=== PATIENT | female | born 1960 | race Two or more races ===

== ENCOUNTER 2024-08-10 13:56 | Inpatient (IN) | payer OTHER ==
[2024-08-10 14:51] VITALS: BMI 34.7
[2024-08-10] MEDS ORDERED: IBUPROFEN 400 MG TABLET (FP) PO PRN (15:37)
[2024-08-10] MEDS ORDERED: guaiFENesin 600 MG TABLET.ER (FP) PO PRN (15:37)
[2024-08-10] MEDS ORDERED: NALOXONE (NARCAN) HCL 4 MG/0.1 ML SPRAY NS PRN (15:37)
[2024-08-10] MEDS ORDERED: MAGNESIUM HYDROX 2400MG/30ML ORAL SUSPENSION 30 ML CUP PO PRN (15:37)
[2024-08-10] MEDS ORDERED: BENZONATATE 200 MG CAPSULE PO PRN (15:37)
[2024-08-10] MEDS ORDERED: LOPERAMIDE HCL 2 MG CAPSULE PO PRN (15:37)
[2024-08-10] MEDS: TUBERCULIN PPD 5 TU/0.1ML SYRINGE (IN PATIENT USE ONLY) ID ONE (19:59)
[2024-08-10] MEDS: THIAMINE 100 MG TABLET PO SCH (21:16)
[2024-08-10] MEDS: MELATONIN 5 MG TABLETS PO SCH (21:16)
[2024-08-11] MEDS ORDERED: methaDONE HCL 10 MG TABLET PO SCH (08:30)
[2024-08-11] MEDS: PRENATAL VITAMINS W/ FOLIC ACID TABLET (FP) PO SCH (10:02)
[2024-08-11] MEDS: LORATADINE 10 MG TABLET PO SCH (10:02)
[2024-08-11] MEDS: MONTELUKAST NA 10 MG TABLET PO SCH (10:02)
[2024-08-11] MEDS: BICTEGRAV/EMTRICIT/TENOFOV (BIKTARVY) 50-200-25 MG TABLET PO SCH (10:04)
[2024-08-11 14:31] LABS: CHLORIDE 110 mmol/L (98-107); SODIUM 142 mmol/L (136-145)
[2024-08-11 14:33] LABS: ALBUMIN 3.2 g/dl (3.4-5.0); ANION GAP 5 mmol/L (4-13); BLOOD UREA NITROGEN 12.6 mg/dL (7-18); CALCIUM 8.8 mg/dL (8.5-10.1); CO2 27 mmol/L (21-32)
[2024-08-11 14:34] LABS: GLUCOSE,RANDOM 111 mg/dL (74-106); HEMATOCRIT 35.6 % (32.4-45.2); HEMOGLOBIN 11.7 GM/dL (10.7-15.3); MCH 28.5 pg (25.7-33.7); MCHC 32.8 g/dl (32.0-36.0); MEAN CELL VOLUME 86.8 fl (80-96); MEAN PLT VOLUME 7.5 fl (7.5-11.1); PLATELET COUNT 285 10^3/uL (134-434); RDW 14.8 % (11.6-15.6); WHITE BLOOD COUNT 3.2 K/mm3 (4.0-10.0)
[2024-08-11 14:36] LABS: SGOT/AST 23 U/L (15-37); SGPT/ALT 19 U/L (13-61)
[2024-08-11 14:38] LABS: BILIRUBIN,TOTAL 0.2 mg/dL (0.2-1); TOT PROT 7.3 g/dl (6.4-8.2)
[2024-08-11 14:39] LABS: ALK PHOS 83 U/L (45-117)
[2024-08-11] MEDS: MIRTAZAPINE 15 MG TABLET (FP) PO SCH (21:49)
[2024-08-12 10:54] LABS: URINE APPEARANCE CLEAR; URINE BILIRUBIN NEGATIVE (NEGATIVE); URINE COLOR YELLOW; URINE GLUCOSE (UA) NEGATIVE (NEGATIVE); URINE KETONE NEGATIVE (NEGATIVE); URINE LEUK ESTERASE NEGATIVE (NEGATIVE); URINE NITRITE NEGATIVE (NEGATIVE); URINE PROTEIN NEGATIVE (NEGATIVE); URINE UROBILINOGEN 0.2 mg/dL (0.2-1.0)
[2024-08-12] MEDS: amLODIPine BESYLATE 5 MG TABLET (FP) PO SCH (11:58)
[2024-08-12] MEDS: MONTELUKAST NA 10 MG TABLET PO SCH (22:18)
[2024-08-13] MEDS: BICTEGRAV/EMTRICIT/TENOFOV (BIKTARVY) 50-200-25 MG TABLET PO SCH (06:43)
[2024-08-13] MEDS: NICOTINE POLACRILEX 2 MG GUM BUC PRN (12:31)
[2024-08-14] MEDS: BENZOCAINE/MENTHOL (CHLORASEPTIC ) LOZENGE MM PRN (06:59)
[2024-08-14] MEDS: IBUPROFEN 600 MG TABLET (FP) PO PRN (07:00)
[2024-08-14] MEDS: ALBUTEROL SO4 HFA INHALER IH PRN (17:41)
[2024-08-14] MEDS: ACETAMINOPHEN 325 MG TABLET (FP) PO PRN (19:15)
[2024-08-15] MEDS: MAG HYDROX/AL HYDROX/SIMETH 30 ML UNIT-DOSE CUP PO PRN (08:46)
[2024-08-16] MEDS ORDERED: BISMUTH SUBSALICYLATE 524 MG/30 ML PO PRN (13:42)
[2024-08-16] MEDS ORDERED: BENZOCAINE/MENTHOL (CHLORASEPTIC ) LOZENGE MM PRN (13:42)
[2024-08-16] MEDS ORDERED: DICYCLOMINE HCL 10 MG CAPSULE PO PRN (13:42)
[2024-08-16] MEDS ORDERED: BENZONATATE 200 MG CAPSULE PO PRN (13:42)
[2024-08-16] MEDS ORDERED: ONDANSETRON *ODT* 4 MG TABLET SL PRN (13:42)
[2024-08-16] MEDS ORDERED: ALBUTEROL SO4 2.5/IPRATROPIUM 0.5 INH SOL 3 ML VIAL.NEB. NEB PRN (13:45)
[2024-08-16] MEDS: BUDESONIDE/FORMETEROL FUMARATE 160/4.5 mcg INHALER IH SCH (14:17)
[2024-08-16] MEDS: SULFAMETHOXAZOLE/TRIMETHOPRIM 800MG/160MG D.S. TABLET PO SCH (14:17)
[2024-08-16] MEDS: BACLOFEN 10 MG TABLET (FP) PO SCH (21:07)
[2024-08-16] MEDS: guaiFENesin 600 MG TABLET.ER (FP) PO PRN (23:23)
[2024-08-18] MEDS: DOCUSATE SODIUM 100 MG CAPSULE (FP) PO PRN (17:26)
[2024-08-19] MEDS: NICOTINE POLACRILEX 2 MG LOZENGE BC PRN (16:42)
[2024-08-20] MEDS ORDERED: BENZONATATE 200 MG CAPSULE PO PRN (10:04)
[2024-08-20] MEDS: OXYMETAZOLINE 0.05% NASAL SOLUTION 15 ML BOTTLE NS PRN (21:15)
[2024-08-21] MEDS: LORATADINE 10 MG TABLET PO SCH (09:59)
[2024-08-21] MEDS: guaiFENesin 600 MG TABLET.ER (FP) PO PRN (21:08)
[2024-08-23] MEDS: BUDESONIDE/FORMETEROL FUMARATE 160/4.5 mcg INHALER IH SCH (14:14)
[2024-08-24] MEDS: QUEtiapine FUMARATE 25 MG TABLET PO SCH (21:16)
[2024-08-25] MEDS: POLYETHYLENE GLYCOL (HEALTHYLAX) 3350 17 GM PACKET PO PRN (09:06)
[2024-08-25] MEDS: SODIUM PHOSPHATE/NA BIPHOS 133 ML ENEMA RC ONE (17:01)
[2024-08-30 06:42] VITALS: RESP 18
[2024-08-31 06:00] VITALS: BP 127/82; PULSE 81; TEMP 97.8
== END 2024-08-31 10:15 | disposition home or self-care (01) | DRG 772 ==
LOC: YASAS 13:56 → Y5N 17:00
PROVIDERS: ADMIT Psychiatry & Neurology Pain Medicine; ATTEND Psychiatry & Neurology Pain Medicine
PROC: HZ42ZZZ Group Counseling for Substance Abuse Treatment, Cognitive-Behavioral (ICD-10-PCS; principal; 2024-08-10)
DX: F14.20 Cocaine dependence, uncomplicated (principal); F11.20 Opioid dependence, uncomplicated; F10.20 Alcohol dependence, uncomplicated; F17.210 Nicotine dependence, cigarettes, uncomplicated; F19.282 Other psychoactive substance dependence with psychoactive substance-induced sleep disorder; F19.24 Other psychoactive substance dependence with psychoactive substance-induced mood disorder; F32.A Depression, unspecified; Z21 Asymptomatic human immunodeficiency virus [HIV] infection status; I10 Essential (primary) hypertension; J30.2 Other seasonal allergic rhinitis; J32.0 Chronic maxillary sinusitis; K59.00 Constipation, unspecified; Z56.0 Unemployment, unspecified; Z59.00 Homelessness unspecified
CPT/HCPCS: 0241U-QW; 36415; 80053; 80305; 80307; 81003; 85027; 86780; 87811; 93005; 93010; J0475